=== PATIENT | female | born 1985 | race Caucasian/White ===

== ENCOUNTER → 2021-02-04 | Outpatient (CLI) | payer BC | LOC: EMI 13:49 | DX: G35 Multiple sclerosis (principal) | CPT/HCPCS: 70553; 72156; A9577 ==

== ENCOUNTER → 2021-02-07 | Outpatient (CLI) | payer BC | LOC: EMI 09:00 | DX: G35 Multiple sclerosis (principal) | CPT/HCPCS: 72157; A9577 ==

== ENCOUNTER → 2022-02-17 | Outpatient (CLI) | payer BC | LOC: MRI 02-10 09:30 → EMI 08:39 | DX: G35 Multiple sclerosis (principal) | CPT/HCPCS: 70553; 72156; 72157; A9577 ==